=== PATIENT | female | born 1990 | race Caucasian/White ===

== ENCOUNTER 2017-09-24 13:33 | Observation (INO) | payer BC ==
[2017-09-24 15:15] VITALS: BP 122/82
--- NOTE | 2017-09-24 20:29 | PCM.SN ---
- Free Text/Narrative Note: 1400 S: Patient is a 27 y/o at 36 3/7 wks who presents today for increasing SOB. She does have a history of asthma. Normally is controlled with her advair and singulair. Does have an albuterol inhaler as well. Previously had only needed this a few times a week, but in the last few days has increased use due to constantly feeling SOB. States has used albuterol inhaler 10x/day. Last was about 1 hr ago. Denies pain with inspiration. No wheezing, coughing. No URI symptoms. No chest pain. No other symptoms. Has been having bilateral leg cramping. No other notable symptoms. O: VS: See Trace dayana, appropriate O2 saturations GEN: NAD. Resting comfortably in bed CV: Mild tachycardia, regular rhythm LUNGS: CTAB, no wheezing appreciated AB: Soft, non tender EXT: +1 bilateral edema which is symmetric FHR: 140, moderate variability, + accelerations, no decelerations TOCO: Contractions present, q3-5 SVE: 1 cm dilated / posterior A/P: * Respiratory therapy asked to see patient and evaluate with peak flow meter. Values obtained adequate. Will send home with peak flow meter so can monitor. When respiratory therapy evaluated patient they did note diminished breath sounds in bases. Will start patient on oral steroid and have her follow up with her PCP on Thursday. She will otherwise see me on Thursday. Will return to ER/L&D if symptoms worsen. Mariam Hawkins MD
== END 2017-09-24 15:05 | disposition home or self-care (01) ==
LOC: JD.OBCHECK 13:33 → JD.OB 13:34 → JD.OBCHECK 14:06 → JD.OB 14:07
PROVIDERS: ADMIT Obstetrics & Gynecology; ATTEND Obstetrics & Gynecology
DX: O99.513 Diseases of the respiratory system complicating pregnancy, third trimester (principal); J45.909 Unspecified asthma, uncomplicated; Z3A.36 36 weeks gestation of pregnancy; Z88.0 Allergy status to penicillin
CPT/HCPCS: 59025

== ENCOUNTER 2017-10-14 22:30 | Inpatient (IN) | payer BC ==
[2017-10-15] MEDS ORDERED: Sodium Chloride 0.9% 10 ML Syringe FLUSH PRN (02:13)
[2017-10-15] MEDS ORDERED: Nalbuphine 20 MG/1 ML Amp IVPUSH PRN (02:13)
[2017-10-15] MEDS ORDERED: Ondansetron 4 MG/2 ML SDV IVPUSH PRN (02:13)
--- NOTE | 2017-10-15 02:13 | PCM.LDHP ---
L&D History of Present Illness - General Date of Service: 10/14/17 Admit Problem/Dx: Admission Diagnosis/Problem Admission Diagnosis/Problem Source of Information: Patient History Limitations: Reports: No Limitations - History of Present Illness Introduction:: Patient is a 27 y/o at 39 2/7 wks who presents with complaints of worsening contractions. Have been on and off all day, but early this evening became more consistent. No LOF or VB. - Related Data Allergies/Adverse Reactions: Allergies Allergy/AdvReac Type Severity Reaction Status Date / Time Penicillins Allergy Rash Verified 09/12/15 11:43 Home Medications: Home Meds Fluticasone/Salmeterol [Advair 250-50] 2 puff INH BID 08/21/15 [History] Omeprazole [Prilosec] 10 mg PO BID 08/21/15 [History] Albuterol [Ventolin HFA] 0 gm INH Q4H PRN 09/11/15 [History] Fluticasone Propionate [Flonase] 1 spray NASBOTH DAILY 09/11/15 [History] Cetirizine HCl [Zyrtec] 1 tab PO DAILY 10/15/17 [History] Montelukast [Singulair] 1 tab PO DAILY 10/15/17 [History] Past Medical History HEENT History: Reports: Allergic Rhinitis, Sinusitis Respiratory History: Reports: Asthma Gastrointestinal History: Reports: GERD, PUD 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 Para: 1 - Past Surgical History HEENT Surgical History: Reports: Naso-Sinus Surgery, Tonsillectomy Female Surgical History: Reports: Section, Other (See Below) (C- section wound debridement) Social & Family History - Tobacco Use Smoking Status *Q: Never Smoker - Alcohol Use Alcohol Use History: No - Recreational Drug Use Recreational Drug Use: No Drug Use in Last 12 Months: No H&P Review of Systems - Review of Systems: Review Of Systems: See Below General: Reports: No Symptoms Pulmonary: Reports: No Symptoms Cardiovascular: Reports: No Symptoms Gastrointestinal: Reports: No Symptoms Genitourinary: Reports: No Symptoms Musculoskeletal: Reports: No Symptoms Neurological: Reports: No Symptoms L&D Exam - Exam Exam: See Below - OB Specific Contraction Intensity: Moderate Heart Tones: Present Heart Tones per Min: 140 Heart Rate (FHR) Variability: Moderate (6-25 bmp) Presentation: Vertex - Martinez Score Martinez Score Cervix Position: Midposition Martinez Score Consistency: Soft Martinez Score Effacement: >80% Martinez Score Dilation: 3-4 cm Martinez Score 's Station: -2 Martinez Score Total: 9 - Exam General: Alert, Oriented, Cooperative Lungs: Clear to Auscultation, Normal Respiratory Effort Cardiovascular: Regular Rate, Regular Rhythm GI/Abdominal Exam: Soft, Non-Tender Genitourinary: Normal external exam Extremities: Normal Inspection Skin: Warm, Dry, Intact - Patient Data Result Diagrams: 10/15/17 02:35 - Problem List (1) 39 weeks gestation of SNOMED Code(s): 84167055 ICD Code: Z3A.39 - 39 WEEKS GESTATION OF Status: Acute Current Visit: Yes (2) History of SNOMED Code(s): 805189831 ICD Code: Z98.891 - HISTORY OF UTERINE SCAR FROM PREVIOUS SURGERY Status: Acute Current Visit: Yes (3) Desires (vaginal after ) trial SNOMED Code(s): 062770292, 938043233 ICD Code: O34.219 - MATERNAL CARE FOR UNSP TYPE SCAR FROM PREVIOUS DEL Status: Acute Current Visit: Yes Problem List Initiated/Reviewed/Updated: Yes Assessment/Plan Comment:: 27 y/o at 39 2/7 wks who presents in labor * CBC and T&S * GBS negative, no antibiotics * Pain management per preference * Aware of risks/benefits of TOLAC, desires to proceed * Anticipate
[2017-10-15] MEDS ORDERED: Oxytocin/Lactated Ringers 10 UNIT/1,000 ML BAG IV SCH (02:15)
[2017-10-15] MEDS ORDERED: Bupivacaine 0.25% 10 ML SDV ONE (06:00)
--- NOTE | 2017-10-15 06:52 | PCM.PNLD ---
Labor Progress Note - VS & Meds Vital Signs: Last Vital Signs Temp 36.4 C 10/15/17 02:13 Pulse 92 10/15/17 03:18 Resp 18 10/15/17 02:13 BP 124/79 10/15/17 03:18 Pulse Ox Active Medications: Current Medications Lactated Ringer's (Ringers, Lactated) 1,000 mls @ 100 mls/hr IV ASDIRECTED [facility] Oxytocin/Lactated Ringer's (Pitocin In Lr 10 Units/1,000 Ml) 10 unit in 1,000 mls @ 500 mls/hr IV ASDIRECTED [facility] Nalbuphine HCl (Nubain) 10 mg IVPUSH Q2H PRN PRN Reason: Pain (moderate 4-6) Ondansetron HCl (Zofran) 4 mg IVPUSH Q4H PRN PRN Reason: Nausea/Vomiting Sodium Chloride (Saline Flush) 10 ml FLUSH ASDIRECTED PRN PRN Reason: Keep Vein Open - Uterine Contractions Uterine Monitoring Mode: External [place] Contraction Intensity: Moderate - Monitoring Monitor Mode: External Ultrasound Heart Rate (FHR) Baseline: 135 Heart Rate (FHR) Variability: Moderate (6-25 bmp) Accelerations: Present, 15x15 Decelerations: None - Vaginal Exam Dilation (cm): 5-6 Effacement (Percent): 90 Station: -2 Cervical Position: Midposition - Labor Progress (Free Text) Labor Progress: Doing well. AROM performed with release of clear fluid. Continue present management
[2017-10-15] MEDS ORDERED: fentaNYL 100 MCG/2 ML SDV EPIDUR PRN (07:02)
[2017-10-15] MEDS ORDERED: diphenhydrAMINE 50 MG/ML SDV IVPUSH PRN (07:02)
[2017-10-15] MEDS ORDERED: ePHEDrine 50 MG/ML SDV IVPUSH PRN (07:02)
[2017-10-15] MEDS ORDERED: Bupivacaine/fentaNYL/NS 100 ML Bag EPIDUR SCH (07:15)
[2017-10-15] MEDS: Lactated Ringers 1,000 ML IV SCH ×3 (08:05→09:52)
--- NOTE | 2017-10-15 10:16 | PCM.PREANE ---
Preanesthetic Assessment - Procedure Proposed Procedure: ANGY - Anesthesia/Transfusion/Family Hx Anesthesia History: Prior Anesthesia Without Reaction Family History of Anesthesia Reaction: No Transfusion History: No Prior Transfusion(s) - Review of Systems General: No Symptoms Pulmonary: Other (asthma) Cardiovascular: No Symptoms Gastrointestinal: Other (GERD) Neurological: No Symptoms Other: Reports: None - Physical Assessment NPO Status Date: 10/15/17 NPO Status Time: 08:00 Pulse: 92 Respiratory Rate: 18 Blood Pressure: 124/79 Vital Signs: Last Vital Signs Temp 36.4 C 10/15/17 02:13 Pulse 92 10/15/17 03:18 Resp 18 10/15/17 02:13 BP 124/79 10/15/17 03:18 Pulse Ox Height: 1.63 m Weight: 94.801 kg ASA Class: 2 Mental Status: Alert & Oriented x3 Airway Class: Mallampati = 1 Dentition: Reports: Normal Dentition Thyro-Mental Finger Breadths: 3 Mouth Opening Finger Breadths: 3 ROM/Head Extension: Full Lungs: Clear to Auscultation, Normal Respiratory Effort Cardiovascular: Regular Rate, Regular Rhythm - Lab Values: Laboratory Last Values WBC 17.42 K/mm3 (3.98-10.04) H 10/15/17 02:35 RBC 4.36 M/mm3 (3.98-5.22) 10/15/17 02:35 Hgb 11.8 gm/L (11.2-15.7) 10/15/17 02:35 Hct 35.3 % (34.1-44.9) 10/15/17 02:35 MCV 81.0 fl (79.4-94.8) 10/15/17 02:35 MCH 27.1 pg (25.6-32.2) 10/15/17 02:35 MCHC 33.4 g/dl (32.2-35.5) 10/15/17 02:35 RDW Std Deviation 41.0 fL (36.4-46.3) 10/15/17 02:35 Plt Count 187 K/mm3 (182-369) 10/15/17 02:35 MPV 11.0 fl (9.4-12.3) 10/15/17 02:35 Blood Type O POSITIVE 10/15/17 02:35 Gel Antibody Screen Negative 10/15/17 02:35 - Allergies Allergies/Adverse Reactions: Allergies Allergy/AdvReac Type Severity Reaction Status Date / Time Penicillins Allergy Rash Verified 09/12/15 11:43 - Blood Blood Available: No Product(s) Available: None - Anesthesia Plan Pre-Op Medication Ordered: None - Acknowledgements Anesthesia Type Planned: Epidural Pt an Appropriate Candidate for the Planned Anesthesia: Yes Alternatives and Risks of Anesthesia Discussed w Pt/Guardian: Yes Pt/Guardian Understands and Agrees with Anesthesia Plan: Yes PreAnesthesia Questionnaire HEENT History: Reports: Allergic Rhinitis, Sinusitis Respiratory History: Reports: Asthma Gastrointestinal History: Reports: GERD, PUD Other Gastrointestinal History: abdominal wall defect, globus sensation 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: Hematologic History: Reports: Anemia - Past Surgical History HEENT Surgical History: Reports: Naso-Sinus Surgery, Tonsillectomy Female Surgical History: Reports: Section - SUBSTANCE USE Smoking Status *Q: Never Smoker Second Hand Smoke Exposure: No Recreational Drug Use History: No - HOME MEDS Home Medications: Home Meds Fluticasone/Salmeterol [Advair 250-50] 2 puff INH BID 08/21/15 [History] Omeprazole [Prilosec] 10 mg PO BID 08/21/15 [History] Albuterol [Ventolin HFA] 0 gm INH Q4H PRN 09/11/15 [History] Fluticasone Propionate [Flonase] 1 spray NASBOTH DAILY 09/11/15 [History] Cetirizine HCl [Zyrtec] 1 tab PO DAILY 10/15/17 [History] Montelukast [Singulair] 1 tab PO DAILY 10/15/17 [History] - CURRENT (IN HOUSE) MEDS Current Meds: Current Medications Diphenhydramine HCl (Benadryl) 25 mg IVPUSH Q6H PRN PRN Reason: Itching Ephedrine Sulfate (Ephedrine Sulfate) 5 mg IVPUSH ASDIRECTED PRN PRN Reason: HYPOTENTSION Fentanyl (Sublimaze) 100 mcg EPIDUR Q3H PRN PRN Reason: PAIN Last Admin: 10/15/17 09:06 Dose: 100 mcg Fentanyl/Bupivacaine HCl (Fentanyl/Bupivacaine/Ns 2 Mcg-0.125% 100 Ml) 100 ml EPIDUR ASDIRECTED TIFFANY Last Admin: 10/15/17 09:05 Dose: 100 ml Lactated Ringer's (Ringers, Lactated) 1,000 mls @ 100 mls/hr IV ASDIRECTED [facility] Last Admin: 10/15/17 09:52 Dose: 100 mls/hr Oxytocin/Lactated Ringer's (Pitocin In Lr 10 Units/1,000 Ml) 10 unit in 1,000 mls @ 500 mls/hr IV ASDIRECTED [facility] Nalbuphine HCl (Nubain) 10 mg IVPUSH Q2H PRN PRN Reason: Pain (moderate 4-6) Ondansetron HCl (Zofran) 4 mg IVPUSH Q4H PRN PRN Reason: Nausea/Vomiting Sodium Chloride (Saline Flush) 10 ml FLUSH ASDIRECTED PRN PRN Reason: Keep Vein Open
--- NOTE | 2017-10-15 17:23 | PCM.DEL ---
L & D Note - General Info Date of Service: 10/15/17 - Delivery Note Labor: Spontaneous Delivery Outcome: Livebirth Delivery Method: Spontaneous Vaginal Delivery-Single Delivery Mode: Spontaneous Presentation: Right Occiput Anterior (VALE) Nuchal Cord: None Anesthesia Type: Epidural Amniotic Fluid Description: Clear Episiotomy Type: None Laceration: 2nd Degree Suture type: Vicryl Suture size: other (2-0 and 4-0) Placenta: Intact, Spontaneous Cord: 3 Vessels Estimated Blood Loss: 300 Resuscitation Needed: Yes [place]: Suctioned, Bulb Syringe, Stimulated, Warmed, [place] Used, Warmer Used Score 1 min: 4 Score 5 min: 7 Delivery Comments (Free Text/Narrative):: Patient found to be complete and began pushing. After approximately 2 1/4 hours of pushing head delivered from VALE presentation. With gentle downward traction on baby there was no movement of shoulders. One additional attempt made without movement. Shoulder dystocia diagnosis made. Nursing staff pushed patient's legs into deeper McRobert's and Suprapubic pressure applied. Anterior shoulder then able to be delivered with remainder of infant quickly following. Cord clamped and cut. Cord blood obtained. Inspection of the perineum showed a very short perineal body. Tear noted and did not seem to involve the rectal sphincter. Superficial epidermis, however, disrupted up to level of rectum. That tissue was reapproximated with a 4-0 vicryl. Remainder of obstetric laceration repaired with a 2-0 vicryl in the typical fashion - Patient Data Vitals - Most Recent: Last Vital Signs Temp 36.4 C 10/15/17 02:13 Pulse 92 10/15/17 10:16 Resp 18 10/15/17 10:16 BP 124/79 10/15/17 10:16 Pulse Ox Weight - Most Recent: 94.801 kg I&O - Last 24 Hours: Intake & Output 10/15/17 10/15/17 10/15/17 06:59 14:59 22:59 Intake Total 120 Balance 120 Lab Results Last 24 Hours: Laboratory Results - last 24 hr 10/15/17 10/15/17 Range/Units 02:35 02:35 WBC 17.42 H (3.98-10.04) K/mm3 RBC 4.36 (3.98-5.22) M/mm3 Hgb 11.8 (11.2-15.7) gm/L Hct 35.3 (34.1-44.9) % MCV 81.0 (79.4-94.8) fl MCH 27.1 (25.6-32.2) pg MCHC 33.4 (32.2-35.5) g/dl RDW Std Deviation 41.0 (36.4-46.3) fL Plt Count 187 (182-369) K/mm3 MPV 11.0 (9.4-12.3) fl Blood Type O POSITIVE Gel Antibody Screen Negative Med Orders - Current: Current Medications Diphenhydramine HCl (Benadryl) 25 mg IVPUSH Q6H PRN PRN Reason: Itching Ephedrine Sulfate (Ephedrine Sulfate) 5 mg IVPUSH ASDIRECTED PRN PRN Reason: HYPOTENTSION Fentanyl (Sublimaze) 100 mcg EPIDUR Q3H PRN PRN Reason: PAIN Last Admin: 10/15/17 09:06 Dose: 100 mcg Fentanyl/Bupivacaine HCl (Fentanyl/Bupivacaine/Ns 2 Mcg-0.125% 100 Ml) 100 ml EPIDUR ASDIRECTED [facility] Last Admin: 10/15/17 09:05 Dose: 100 ml Lactated Ringer's (Ringers, Lactated) 1,000 mls @ 100 mls/hr IV ASDIRECTED [facility] Last Admin: 10/15/17 09:52 Dose: 100 mls/hr Oxytocin/Lactated Ringer's (Pitocin In Lr 10 Units/1,000 Ml) 10 unit in 1,000 mls @ 500 mls/hr IV ASDIRECTED [facility] Montelukast Sodium (Singulair) mg PO DAILY [facility] Nalbuphine HCl (Nubain) 10 mg IVPUSH Q2H PRN PRN Reason: Pain (moderate 4-6) Non-Formulary Medication (Cetirizine Hcl [Zyrtec]) 1 tab PO DAILY [facility] Non-Formulary Medication (Fluticasone/Salmeterol) 2 puff INH BID TIFFANY Ondansetron HCl (Zofran) 4 mg IVPUSH Q4H PRN PRN Reason: Nausea/Vomiting Sodium Chloride (Saline Flush) 10 ml FLUSH ASDIRECTED PRN PRN Reason: Keep Vein Open - Problem List & Annotations (1) 39 weeks gestation of SNOMED Code(s): 00555547 Code(s): Z3A.39 - 39 WEEKS GESTATION OF Status: Acute Current Visit: Yes (2) Desires (vaginal after ) trial SNOMED Code(s): 386581039, 717481142 Code(s): O34.219 - MATERNAL CARE FOR UNSP TYPE SCAR FROM PREVIOUS DEL Status: Acute Current Visit: Yes (3) History of SNOMED Code(s): 975621113 Code(s): Z98.891 - HISTORY OF UTERINE SCAR FROM PREVIOUS SURGERY Status: Acute Current Visit: Yes (4) Shoulder dystocia, delivered, current hospitalization SNOMED Code(s): 190564973 Code(s): O66.0 - OBSTRUCTED LABOR DUE TO SHOULDER DYSTOCIA Status: Acute Current Visit: Yes (5) (vaginal after ) SNOMED Code(s): 163996860 Code(s): O34.219 - MATERNAL CARE FOR UNSP TYPE SCAR FROM PREVIOUS DEL Status: Acute Current Visit: Yes - Problem List Review Problem List Initiated/Reviewed/Updated: Yes - My Orders Last 24 Hours: My Active Orders 10/15/17 02:13 Patient Status [ADT] Routine Activity as Tolerated [RC] PFP Communication Order [RC] ASDIRECTED Heart Tones [RC] ASDIRECTED Notify Provider [RC] PRN Peripheral IV Care [RC] . DIRECTED Vital Signs [RC] PER UNIT ROUTINE Nalbuphine [Nubain] 10 mg IVPUSH Q2H PRN Ondansetron [Zofran] 4 mg IVPUSH Q4H PRN Sodium Chloride 0.9% [Saline Flush] 10 ml FLUSH ASDIRECTED PRN Electronic Heart Tones Ext w TOCO [WOMSER] Routine Electronic Heart Tones Internal [WOMSER] Per Unit Routine Peripheral IV Insertion Adult [OM.PC] Routine Resuscitation Status Routine 10/15/17 02:15 Lactated Ringers [Ringers, Lactated] 1,000 ml IV ASDIRECTED Oxytocin/Lactated Ringers [Pitocin in LR 10 Units/1,000 ML] 10 unit in 1,000 ml IV ASDIRECTED 10/15/17 17:18 Patient Status Manage Transfer [TRANSFER] Routine 10/15/17 21:00 Fluticasone/Salmeterol 2 puff INH BID 10/15/17 Breakfast Clear Liquid Diet [DIET] 10/15/17 Dinner Regular Diet [DIET] 10/16/17 09:00 Cetirizine HCl [Zyrtec] 1 tab PO DAILY Montelukast [Singulair] DOSE mg PO DAILY - Assessment Assessment:: 27 y/o G2 now P2002 PPD#0 from at 39 3/7 wks - Plan Plan:: * Routine cares * Strict stool softener/bowel regimen * Encourage breast feeding * Discharge home in 1-2 days
[2017-10-15] MEDS ORDERED: Lanolin 100% Cream 7 GM Tube TOP PRN (18:16)
[2017-10-15] MEDS ORDERED: Witch Hazel Medicated Pads 100/Jar TOP PRN (18:16)
[2017-10-15] MEDS ORDERED: Benzocaine/Menthol 20%-0.5% Spray 56 GM Canister TOP PRN (18:16)
[2017-10-15] MEDS: Docusate Sodium 100 MG Cap PO PRN (18:31)
[2017-10-15] MEDS: Ibuprofen 600 MG Tab PO PRN (18:34)
[2017-10-15] MEDS: Formoterol/Mometasone 200-5 MCG 8.8 GM Inhaler IH SCH (20:54)
[2017-10-15] MEDS ORDERED: Montelukast 10 MG Tab PO SCH (21:31)
[2017-10-15] MEDS: Acetaminophen 325 MG Tab PO PRN (22:08)
[2017-10-16] MEDS: Ibuprofen 600 MG Tab PO PRN ×3 (00:04→13:27)
[2017-10-16] MEDS: Acetaminophen 325 MG Tab PO PRN (03:36)
--- NOTE | 2017-10-16 08:05 | PCM48HPAN ---
Post Anesthesia Note - EVALUATION WITHIN 48HRS OF ANESTHETIC Vital Signs in Normal Range: Yes Patient Participated in Evaluation: Yes Respiratory Function Stable: Yes Airway Patent: Yes Cardiovascular Function Stable: Yes Hydration Status Stable: Yes Pain Control Satisfactory: Yes Nausea and Vomiting Control Satisfactory: Yes Mental Status Recovered: Yes Pulse Rate: 96 Resp Rate: 16 Temperature: 97.5 F Blood Pressure: 102/58
--- NOTE | 2017-10-16 08:28 | PCM.DCSUM1 ---
Discharge Summary - Discharge Data Discharge Date: 10/16/17 Discharge Disposition: Home, Self-Care 01 Condition: Good - Discharge Diagnosis/Problem(s) (1) 39 weeks gestation of SNOMED Code(s): 71590820 ICD Code: Z3A.39 - 39 WEEKS GESTATION OF Status: Acute (2) Desires (vaginal after ) trial SNOMED Code(s): 363257620, 904945194 ICD Code: O34.219 - MATERNAL CARE FOR UNSP TYPE SCAR FROM PREVIOUS DEL Status: Acute (3) History of SNOMED Code(s): 450102194 ICD Code: Z98.891 - HISTORY OF UTERINE SCAR FROM PREVIOUS SURGERY Status: Acute (4) Shoulder dystocia, delivered, current hospitalization SNOMED Code(s): 948729388 ICD Code: O66.0 - OBSTRUCTED LABOR DUE TO SHOULDER DYSTOCIA Status: Acute (5) (vaginal after ) SNOMED Code(s): 333479232 ICD Code: O34.219 - MATERNAL CARE FOR UNSP TYPE SCAR FROM PREVIOUS DEL Status: Acute - Patient Summary/Data Complications: None Consults: None Recommended Follow-up Testing/Procedures: Follow up in 3-6 weeks for check Hospital Course: Patient is a 27 y/o at 39 2/7 wks who presented in labor. Hx of C- section and did desire TOLAC. She progressed well to complete dilation without need for augmentation. Underwent complicated by shoulder dystocia. See delivery note. she did well and was discharged home on PPD#1 - Patient Instructions Diet: Regular Diet as Tolerated Activity: As Tolerated Activity, Other: Pelvic Rest for 6 week Driving: May Drive Today Showering/Bathing: May Shower Showering/Bathing, Other: May Bathe Notify Provider of: Fever, Increased Pain, Swelling and Redness, Drainage, Nausea and/or Vomiting - Discharge Plan Home Medications: Home Meds Fluticasone/Salmeterol [Advair 250-50] 2 puff INH BID 08/21/15 [History] Omeprazole [Prilosec] 10 mg PO BID 08/21/15 [History] Albuterol [Ventolin HFA] 0 gm INH Q4H PRN 09/11/15 [History] Fluticasone Propionate [Flonase] 1 spray NASBOTH DAILY 09/11/15 [History] Cetirizine HCl [Zyrtec] 1 tab PO DAILY 10/15/17 [History] Montelukast [Singulair] 1 tab PO DAILY 10/15/17 [History] Docusate Sodium [Colace] 100 mg PO BID PRN cap 10/16/17 [Rx] Ibuprofen [IJD: Ibuprofen] 600 mg PO Q6H PRN tablet 10/16/17 [Rx] Patient Handouts: Vaginal Delivery, Care After Referrals: Mariam Hawkins MD [Primary Care Provider] - (3-6 weeks for check ) - Discharge Summary/Plan Comment DC Time >30 min.: No - Patient Data Vitals - Most Recent: Last Vital Signs Temp 36.4 C 10/16/17 08:05 Pulse 96 10/16/17 08:05 Resp 16 10/16/17 08:05 BP 102/58 L 10/16/17 08:05 Pulse Ox 95 10/16/17 04:53 Weight - Most Recent: 94.801 kg I&O - Last 24 hours: Intake & Output 10/15/17 10/16/17 10/16/17 22:59 06:59 14:59 Intake Total 120 Balance 120 Med Orders - Current: Current Medications Acetaminophen (Tylenol) 650 mg PO Q4H PRN PRN Reason: mild pain or fever Last Admin: 10/16/17 03:36 Dose: 650 mg Benzocaine/Menthol (Dermoplast Pain Relief [place]) 0 gm TOP ASDIRECTED PRN PRN Reason: Perineal Comfort Measure Last Admin: 10/15/17 18:32 Dose: 1 can Docusate Sodium (Colace) 100 mg PO BID PRN PRN Reason: Constipation Last Admin: 10/15/17 18:31 Dose: 100 mg Emollient Ointment (Lansinoh Hpa) 0 gm TOP ASDIRECTED PRN PRN Reason: Sore Nipples Ibuprofen (Motrin) 600 mg PO Q6H PRN PRN Reason: Mild pain or fever Last Admin: 10/16/17 07:13 Dose: 600 mg Loratadine (Claritin) 10 mg PO DAILY TIFFANY Mometasone Furoate/Formoterol Fumar (Dulera 200-5 Mcg) 2 puff IH BID TIFFANY Last Admin: 10/15/17 20:54 Dose: 2 puff Montelukast Sodium (Singulair) 10 mg PO BEDTIME [facility] Last Admin: 10/15/17 22:05 Dose: 10 mg Witch Tena (Tucks) 1 pad TOP ASDIRECTED PRN PRN Reason: Hemorrhoid pain Last Admin: 10/15/17 18:32 Dose: 1 jar Discontinued Medications Diphenhydramine HCl (Benadryl) 25 mg IVPUSH Q6H PRN PRN Reason: Itching Ephedrine Sulfate (Ephedrine Sulfate) 5 mg IVPUSH ASDIRECTED PRN PRN Reason: HYPOTENTSION Fentanyl (Sublimaze) 100 mcg EPIDUR Q3H PRN PRN Reason: PAIN Last Admin: 10/15/17 09:06 Dose: 100 mcg Fentanyl/Bupivacaine HCl (Fentanyl/Bupivacaine/Ns 2 Mcg-0.125% 100 Ml) 100 ml EPIDUR ASDIRECTED [facility] Last Admin: 10/15/17 09:05 Dose: 100 ml Lactated Ringer's (Ringers, Lactated) 1,000 mls @ 100 mls/hr IV ASDIRECTED [facility] Last Admin: 10/15/17 09:52 Dose: 100 mls/hr Oxytocin/Lactated Ringer's (Pitocin In Lr 10 Units/1,000 Ml) 10 unit in 1,000 mls @ 500 mls/hr IV ASDIRECTED [facility] Montelukast Sodium (Singulair) 10 mg PO DAILY [facility] Nalbuphine HCl (Nubain) 10 mg IVPUSH Q2H PRN PRN Reason: Pain (moderate 4-6) Ondansetron HCl (Zofran) 4 mg IVPUSH Q4H PRN PRN Reason: Nausea/Vomiting Sodium Chloride (Saline Flush) 10 ml FLUSH ASDIRECTED PRN PRN Reason: Keep Vein Open
--- NOTE | 2017-10-16 08:28 | PCM.PNPP ---
- General Info Date of Service: 10/16/17 Functional Status: Reports: Pain Controlled, Tolerating Diet, Ambulating, Urinating - Review of Systems General: Reports: No Symptoms Pulmonary: Reports: No Symptoms Cardiovascular: Reports: No Symptoms Gastrointestinal: Reports: No Symptoms Genitourinary: Reports: No Symptoms Musculoskeletal: Reports: No Symptoms Neurological: Reports: No Symptoms - Patient Data Vital Signs - Most Recent: Last Vital Signs Temp 36.4 C 10/16/17 08:05 Pulse 96 10/16/17 08:05 Resp 16 10/16/17 08:05 BP 102/58 L 10/16/17 08:05 Pulse Ox 95 10/16/17 04:53 Weight - Most Recent: 94.801 kg I&O - Last 24 Hours: Intake & Output 10/15/17 10/16/17 10/16/17 22:59 06:59 14:59 Intake Total 120 Balance 120 Med Orders - Current: Current Medications Acetaminophen (Tylenol) 650 mg PO Q4H PRN PRN Reason: mild pain or fever Last Admin: 10/16/17 03:36 Dose: 650 mg Benzocaine/Menthol (Dermoplast Pain Relief [place]) 0 gm TOP ASDIRECTED PRN PRN Reason: Perineal Comfort Measure Last Admin: 10/15/17 18:32 Dose: 1 can Docusate Sodium (Colace) 100 mg PO BID PRN PRN Reason: Constipation Last Admin: 10/15/17 18:31 Dose: 100 mg Emollient Ointment (Lansinoh Hpa) 0 gm TOP ASDIRECTED PRN PRN Reason: Sore Nipples Ibuprofen (Motrin) 600 mg PO Q6H PRN PRN Reason: Mild pain or fever Last Admin: 10/16/17 07:13 Dose: 600 mg Loratadine (Claritin) 10 mg PO DAILY [facility] Mometasone Furoate/Formoterol Fumar (Dulera 200-5 Mcg) 2 puff IH BID [facility] Last Admin: 10/15/17 20:54 Dose: 2 puff Montelukast Sodium (Singulair) 10 mg PO BEDTIME [facility] Last Admin: 10/15/17 22:05 Dose: 10 mg Witch Tena (Tucks) 1 pad TOP ASDIRECTED PRN PRN Reason: Hemorrhoid pain Last Admin: 10/15/17 18:32 Dose: 1 jar Discontinued Medications Diphenhydramine HCl (Benadryl) 25 mg IVPUSH Q6H PRN PRN Reason: Itching Ephedrine Sulfate (Ephedrine Sulfate) 5 mg IVPUSH ASDIRECTED PRN PRN Reason: HYPOTENTSION Fentanyl (Sublimaze) 100 mcg EPIDUR Q3H PRN PRN Reason: PAIN Last Admin: 10/15/17 09:06 Dose: 100 mcg Fentanyl/Bupivacaine HCl (Fentanyl/Bupivacaine/Ns 2 Mcg-0.125% 100 Ml) 100 ml EPIDUR ASDIRECTED [place]FF[place] Last Admin: 10/15/17 09:05 Dose: 100 ml Lactated Ringer's (Ringers, Lactated) 1,000 mls @ 100 mls/hr IV ASDIRECTED TIFFANY Last Admin: 10/15/17 09:52 Dose: 100 mls/hr Oxytocin/Lactated Ringer's (Pitocin In Lr 10 Units/1,000 Ml) 10 unit in 1,000 mls @ 500 mls/hr IV ASDIRECTED [facility] Montelukast Sodium (Singulair) 10 mg PO DAILY [facility] Nalbuphine HCl (Nubain) 10 mg IVPUSH Q2H PRN PRN Reason: Pain (moderate 4-6) Ondansetron HCl (Zofran) 4 mg IVPUSH Q4H PRN PRN Reason: Nausea/Vomiting Sodium Chloride (Saline Flush) 10 ml FLUSH ASDIRECTED PRN PRN Reason: Keep Vein Open - Infant Interaction Infant Disposition, : [place] in Room with Family Interaction: Holding Infant Feeding: Breastfed ; Nursed Well Support Person: - Recovery Exam Fundal Tone: Firm Fundal Placement: Midline Lochia Amount: Moderate Lochia Color: Rubra/Red Episiotomy/Laceration: Approximated Bladder Status: Voiding - Exam General: Alert, Oriented, Cooperative GI/Abdominal Exam: Soft, Non-Tender Extremities: Normal Inspection Skin: Warm, Dry, Intact - Problem List & Annotations (1) 39 weeks gestation of SNOMED Code(s): 36404067 Code(s): Z3A.39 - 39 WEEKS GESTATION OF Status: Acute Current Visit: Yes (2) Desires (vaginal after ) trial SNOMED Code(s): 897908285, 784481923 Code(s): O34.219 - MATERNAL CARE FOR UNSP TYPE SCAR FROM PREVIOUS DEL Status: Acute Current Visit: Yes (3) History of SNOMED Code(s): 159578940 Code(s): Z98.891 - HISTORY OF UTERINE SCAR FROM PREVIOUS SURGERY Status: Acute Current Visit: Yes (4) Shoulder dystocia, delivered, current hospitalization SNOMED Code(s): 813707044 Code(s): O66.0 - OBSTRUCTED LABOR DUE TO SHOULDER DYSTOCIA Status: Acute Current Visit: Yes (5) (vaginal after ) SNOMED Code(s): 418766423 Code(s): O34.219 - MATERNAL CARE FOR UNSP TYPE SCAR FROM PREVIOUS DEL Status: Acute Current Visit: Yes - Problem List Review Problem List Initiated/Reviewed/Updated: Yes - My Orders Last 24 Hours: My Active Orders 10/15/17 18:16 Activity as Tolerated [RC] PER UNIT ROUTINE Vital Signs [RC] 20,04,12 Acetaminophen [Tylenol] 650 mg PO Q4H PRN Benzocaine/Menthol [Dermoplast Pain Relief [place]] See Dose Instructions TOP ASDIRECTED PRN Docusate Sodium [Colace] 100 mg PO BID PRN Ibuprofen [Motrin] 600 mg PO Q6H PRN Lanolin [Lansinoh HPA] See Dose Instructions TOP ASDIRECTED PRN Witch Tena [Tucks] 1 pad TOP ASDIRECTED PRN Assess Lochia [WOMSER] Per Unit Routine Assess Uterine Involution [WOMSER] Per Unit Routine Breast Pump [WOMSER] Per Unit Routine Heat Therapy [OM.PC] PRN Ice Therapy [OM.PC] Per Unit Routine Perineal Care [OM.PC] Per Unit Routine Peripheral IV Discontinue [OM.PC] Routine Sitz Bath [OM.PC] Per Unit Routine 10/15/17 21:00 Mometasone/Formoterol [Dulera 200-5 MCG] 2 puff IH BID 10/15/17 21:31 Montelukast [Singulair] 10 mg PO BEDTIME 10/15/17 Dinner Regular Diet [DIET] 10/16/17 08:28 Ready for Discharge [RC] PER UNIT ROUTINE 10/16/17 09:00 Loratadine [Claritin] 10 mg PO DAILY 10/16/17 18:16 Heat Therapy [MONICA] PRN - Assessment Assessment:: 27 y/o G2 now P2002 PPD#1 from at 39 3/7 wks - Plan Plan:: * Routine cares * Strict stool softener/bowel regimen * Encourage breast feeding * Discharge home today per patient preference
[2017-10-16] MEDS: Formoterol/Mometasone 200-5 MCG 8.8 GM Inhaler IH SCH (08:49)
[2017-10-16] MEDS ORDERED: Montelukast 10 MG Tab PO SCH (09:00)
[2017-10-16] MEDS ORDERED: Loratadine 10 MG Tab PO SCH (09:00)
[2017-10-16] MEDS: Docusate Sodium 100 MG Cap PO PRN (12:39)
[2017-10-16 12:52] VITALS: BP 115/67
== END 2017-10-16 19:00 | disposition home or self-care (01) | DRG 560 ==
LOC: JD.OBCHECK 22:30 → JD.OB 22:32 → JD.OBCHECK 10-15 02:18 → JD.OB 10-15 02:21 → OBSVTOIN 10-15 13:52 → JD.OB 10-15 13:53
PROVIDERS: ADMIT Obstetrics & Gynecology; ATTEND Obstetrics & Gynecology
PROC: 10E0XZZ Delivery of Products of Conception, External Approach (ICD-10-PCS; principal; 2017-10-15)
PROC: 10907ZC Drainage of Amniotic Fluid, Therapeutic from Products of Conception, Via Natural or Artificial Opening (ICD-10-PCS; 2017-10-15)
PROC: 6A550ZT Pheresis of Cord Blood Stem Cells, Single (ICD-10-PCS; 2017-10-15)
PROC: 0KQM0ZZ Repair Perineum Muscle, Open Approach (ICD-10-PCS; 2017-10-15)
PROC: 00HU33Z Insertion of Infusion Device into Spinal Canal, Percutaneous Approach (ICD-10-PCS; 2017-10-15)
PROC: 3E0R3BZ Introduction of Anesthetic Agent into Spinal Canal, Percutaneous Approach (ICD-10-PCS; 2017-10-15)
DX: O34.219 Maternal care for unspecified type scar from previous cesarean delivery (principal); O66.0 Obstructed labor due to shoulder dystocia; O70.1 Second degree perineal laceration during delivery; O99.52 Diseases of the respiratory system complicating childbirth; J45.909 Unspecified asthma, uncomplicated; K21.9 Gastro-esophageal reflux disease without esophagitis; O99.62 Diseases of the digestive system complicating childbirth; N85.8 Other specified noninflammatory disorders of uterus; Z3A.39 39 weeks gestation of pregnancy; Z37.0 Single live birth; Z88.0 Allergy status to penicillin
CPT/HCPCS: 36415; 51701; 51702; 59025; 59300; 59409; 85027; 86850; 86900; 86901; 94664; A9270-GY; J3010; J7120